=== PATIENT | female | born 1980 | race Caucasian/White ===

== ENCOUNTER 2016-05-01 13:45 | Emergency (ER) | payer BC ==
--- NOTE | 2016-05-01 15:07 | CT ---
Clinical History : Pressure behind right eye, pressure in head , MAIN Exam : CT Head without contrast 05/01/2016 2:27 PM FOAM TANK LAMINATOR Comparisons : none. Technique : Volumetric CT acquisition was performed through the brain. Images in the axial, coronal, and sagittal planes were presented for interpretation. Radiation dose : DLP-773.97 Findings: The soft tissue structures of the face, scalp, and orbits are normal. The globes remain intact. The visualized portions of the paranasal sinuses and mastoid air-cells are clear. The calvarium remains intact . There is no acute intracranial hemorrhage, midline shift, or mass effect. The ventricles are normal in size and the posterior fossa structures are normal in appearance. Limited evaluation of the vasculature demonstrates no gross abnormalities. There is no CT evidence of acute infarction. Impression: No acute intracranial process. Electronically signed by: Suly Hernandes MD 05/01/2016 3:06 PM FOAM TANK LAMINATOR
[2016-05-01] MEDS ORDERED: LORazepam 0.5 MG TAB PO ONE (15:09)
--- NOTE | 2016-05-01 18:53 | ED.PDOC ---
History of Present Illness - General Chief Complaint: General Stated Complaint: weakness,throbbing behind left eye,near syncope Time Seen by Provider: 05/01/16 14:26 Source: patient, RN notes reviewed, Vital Signs reviewed, family Exam Limitations: no limitations - History of Present Illness Initial Comments: Patient is a 35 y/o female who is being worked up for an autoimmune disorder. She started having pressure behind her left eye today. She has had this happen before, and the gasket supervisor said it may be optic neuritis according to Patient. However, she has not been treated for optic neuritis in the past. After the pressure started, she started having numbness in her bilateral upper extremities and muscle pain in her upper extremities. Patient does have a history of panic attacks. Although she states she does not have anxiety, her states she definitely has anxiety. Timing/Duration: 1-3 hours Severity: moderate Improving Factors: nothing Worsening Factors: nothing Associated Symptoms: headaches, nausea/vomiting, weakness Allergies/Adverse Reactions: Allergies NO KNOWN ALLERGY Allergy (Verified 05/01/16 14:14) Home Medications: Ambulatory Orders Baclofen 05/01/16 Prozac 05/01/16 Review of Systems - Review of Systems Constitutional: States: malaise, weakness EENTM: States: eye pain Respiratory: States: no symptoms reported Cardiology: States: no symptoms reported Gastrointestinal/Abdominal: States: nausea Genitourinary: States: no symptoms reported Musculoskeletal: States: muscle pain Skin: States: no symptoms reported Neurological: States: headache, numbness, tingling, weakness Hematologic/Lymphatic: States: other - autoimmune disorder Past Medical History (General) - Patient Medical History Surgical History: appendectomy, Hysterectomy - Vaccination History Hx Influenza Vaccination: No - Social History Hx Tobacco Use: No - Female History Patient is a Female of Child Bearing Age (10 -59 yrs old): No Family Medical History - Family History Mother Family History: Unknown Living Status: Unknown Physical Exam - Physical Exam General Appearance: Alert, Anxious, Obvious distress Eye Exam: bilateral normal Ears, Nose, Throat: hearing grossly normal, normal ENT inspection, normal pharynx Neck: non-tender, full range of motion, supple, normal inspection Respiratory: lungs clear, normal breath sounds, no respiratory distress, no accessory muscle use Cardiovascular/Chest: regular rate, rhythm, no edema, no gallop, no murmur Gastrointestinal/Abdominal: normal bowel sounds, non tender, soft, no organomegaly Extremity: normal range of motion, non-tender, normal inspection Neurologic: no motor/sensory deficits, alert, oriented x 3, other - anxious Skin Exam: normal color, warm/dry Progress - Results/Orders Results/Orders: 05/01/16 05/01/16 05/01/16 14:07 16:08 17:30 Temperature 96.7 F L Pulse Rate [ 62 99 H 55 L Left Brachial] Respiratory 20 16 16 Rate Blood Pressure 133/86 113/66 110/71 [Left Arm] O2 Sat by Pulse 100 97 99 Oximetry Laboratory Results WBC 6.4 K/mm3 (4.8-10.8) 05/01/16 17:19 RBC 3.93 M/mm3 (4.20-5.40) L 05/01/16 17:19 Hgb 12.8 gm/dL (12.0-16.0) 05/01/16 17:19 Hct 38.4 % (36.0-47.0) 05/01/16 17:19 MCV 97.6 fl (81.0-99.0) 05/01/16 17:19 MCH 32.5 pg (27.0-31.0) H 05/01/16 17:19 MCHC 33.2 g/dL (33.0-37.0) 05/01/16 17:19 RDW 12.9 % (11.5-14.5) 05/01/16 17:19 Plt Count 182 K/mm3 (130-400) 05/01/16 17:19 MPV 8.8 fl (7.40-10.4) 05/01/16 17:19 Absolute Neuts (auto) 4.60 K/uL (1.8-6.8) 05/01/16 17:19 Absolute Lymphs (auto) 1.20 K/uL (1.0-3.4) 05/01/16 17:19 Absolute Monos (auto) 0.40 K/uL (0.2-0.8) 05/01/16 17:19 Absolute Eos (auto) 0.10 K/uL (0.0-0.4) 05/01/16 17:19 Absolute Basos (auto) 0.00 K/uL (0.0-0.1) 05/01/16 17:19 Neutrophils % 71.7 % (42.0-78.0) 05/01/16 17:19 Lymphocytes % 18.8 % (20.0-50.0) L 05/01/16 17:19 Monocytes % 7.0 % (2.0-9.0) 05/01/16 17:19 Eosinophils % 1.9 % (1.0-5.0) 05/01/16 17:19 Basophils % 0.6 % (0.0-2.0) 05/01/16 17:19 Sodium 139 mmol/L (135-145) 05/01/16 17:19 Potassium 3.6 mmol/L (3.6-5.0) 05/01/16 17:19 Chloride 105 mmol/L (101-111) 05/01/16 17:19 Carbon Dioxide 27 mmol/L (21-31) 05/01/16 17:19 Anion Gap 10.6 (12-18) L 05/01/16 17:19 BUN 12 mg/dL (7-18) 05/01/16 17:19 Creatinine 0.68 mg/dL (0.6-1.3) 05/01/16 17:19 BUN/Creatinine Ratio 17.6 (10-20) 05/01/16 17:19 Random Glucose 95 mg/dL (70-105) 05/01/16 17:19 Serum Osmolality 277.1 mOsm/L (275-295) 05/01/16 17:19 Calcium 9.0 mg/dL (8.4-10.2) 05/01/16 17:19 Total Bilirubin 0.2 mg/dL (0.2-1.0) 05/01/16 17:19 AST 16 IU/L (10-42) 05/01/16 17:19 ALT 21 IU/L (10-60) 05/01/16 17:19 Alkaline Phosphatase 50 IU/L (42-121) 05/01/16 17:19 Serum Total Protein 7.2 gm/dL (6.4-8.2) 05/01/16 17:19 Albumin 4.0 g/dl (3.2-5.5) 05/01/16 17:19 Globulin 3.2 gm/dL (2.3-3.5) 02/25/17 17:19 Albumin/Globulin Ratio 1.3 (1.1-1.9) 05/01/16 17:19 Urine Color Yellow (Yellow) 05/01/16 17:30 Urine Appearance Clear (Clear) 05/01/16 17:30 Urine pH 7.0 (4.5-7.8) 05/01/16 17:30 Ur Specific [place] 1.015 (1.005-1.030) 05/01/16 17:30 Urine Protein Negative mg/dL 05/01/16 17:30 Urine Glucose (UA) Negative mg/dL (Negative) 05/01/16 17:30 Urine Ketones Negative mg/dL (NEGATIVE) 05/01/16 17:30 Urine Blood Trace-intact (Negative) H 05/01/16 17: Urine Nitrite Negative 05/01/16 17:30 Urine Bilirubin Negative (NEGATIVE) 05/01/16 17:30 Urine Urobilinogen 0.2 mg/dL (0.2-1.0) 05/01/16 17:30 Ur Leukocyte Esterase Negative (Negative) 05/01/16 17:30 Urine RBC 0-1 /hpf 05/01/16 17:30 Urine WBC 0-1 /hpf 05/01/16 17:30 Ur Epithelial Cells 0-1 /hpf 05/01/16 17:30 Urine Bacteria Rare 05/01/16 17:30 Visual acuity: R 20/15 L 20/20 B 20/20 - EKG/XRAY/CT CT: Head - no acute process CT Ordered: Yes CT Interpretation Call Back: No - Report sent Departure - Departure Clinical Impression: Pressure in head, Anxiety Time of Disposition: 19:08 Disposition: Discharge to Home or Self Care Condition: Excellent Departure Forms: ED Discharge - Pt. Copy, Patient Portal Self Enrollment Home Medications: Ambulatory Orders Baclofen 05/01/16 Prozac 05/01/16 Additional Instructions: Ibuprofen or Tylenol for pain. Call Foreman/Project Manager and Hotel Yardperson on Tuesday ( in 2 days) to schedule appointments TREY.
[2016-05-01 19:29] VITALS: BP 115/73; TEMP 97.2; O2SAT 97
--- NOTE | 2016-05-03 00:59 | CT ---
Clinical History : Pressure behind right eye, pressure in head , MAIN Exam : CT Head without contrast 05/01/2016 2:27 PM CONTROL CHEMIST Comparisons : none. Technique : Volumetric CT acquisition was performed through the brain. Images in the axial, coronal, and sagittal planes were presented for interpretation. Radiation dose : DLP-773.97 Findings: The soft tissue structures of the face, scalp, and orbits are normal. The globes remain intact. The visualized portions of the paranasal sinuses and mastoid air-cells are clear. The calvarium remains intact . There is no acute intracranial hemorrhage, midline shift, or mass effect. The ventricles are normal in size and the posterior fossa structures are normal in appearance. Limited evaluation of the vasculature demonstrates no gross abnormalities. There is no CT evidence of acute infarction. Impression: No acute intracranial process. Electronically signed by: Suyl Hernandes MD 05/01/2016 3:06 PM CONTROL CHEMIST
== END 2016-05-01 19:20 | disposition home or self-care (01) ==
LOC: ER 13:45
DX: R51 Headache (principal); F41.9 Anxiety disorder, unspecified